=== PATIENT | female | born 2000 | race African-American/Black ===

== ENCOUNTER 2023-11-01 03:49 | Emergency (ER) | payer MEDICAID ==
[~2023-11-01] VITALS: Ht 165.1 cm; Wt 77.0 kg
[2023-11-01 04:15] VITALS: BP 118/85; PULSE 104; RESP 16; TEMP 98.2; O2SAT 99
[2023-11-01] MEDS ORDERED: POVIDONE-IODINE 10% TOPICAL SOLN 240ML TOP NR (06:15)
== END 2023-11-01 06:40 | disposition home or self-care (01) ==
LOC: ER 03:49
DX: S61.411A Laceration without foreign body of right hand, initial encounter (principal); Z88.8 Allergy status to other drugs, medicaments and biological substances; W26.8XXA Contact with other sharp object(s), not elsewhere classified, initial encounter; Y93.89 Activity, other specified; Y92.89 Other specified places as the place of occurrence of the external cause; Y99.8 Other external cause status
CPT/HCPCS: 81025; 99282; Z7610 ×3